=== PATIENT | male | born 1970 | race Caucasian/White ===

== ENCOUNTER 2016-12-09 19:51 | Emergency (ER) | payer OTHER ==
[2016-12-09 19:52] VITALS: BMI 29.5
[2016-12-09 21:01] VITALS: BP 116/66; PULSE 94; RESP 20; TEMP 99.1; O2SAT 94
[2016-12-09] MEDS ORDERED: Tobramycin 0.3% OPH OINT OD STA (21:39)
[2016-12-09] MEDS ORDERED: Tobramycin 0.3% OPH OINT ONE (21:48)
--- NOTE | 2016-12-09 22:02 | C.PDOC ---
History Of Present Illness 46 y/o male presents to ED with complaints of eyes pain and redness with associated itchiness for 5 days. Patient has been using Visine with no relief. Patient denies injury, fever, rash or any other complaints a this time. Time Seen by Provider: 12/09/16 21:16 Chief Complaint (Nursing): ENT Problem History Per: Patient History/Exam Limitations: no limitations Onset/Duration Of Symptoms: Days Current Symptoms Are (Timing): Still Present Past Medical History Reviewed: Historical Data, Nursing Documentation, Vital Signs Vital Signs: Last Vital Signs Temp 99.1 F 12/09/16 20:58 Pulse 94 H 12/09/16 20:58 Resp 20 12/09/16 20:58 BP 116/66 12/09/16 20:58 Pulse Ox 94 L 12/09/16 22:10 - Medical History PMH: Anxiety, Asthma, Back Problems, HTN Surgical History: No Surg Hx Family History: States: No Known Family Hx - Social History Hx Tobacco Use: Yes Hx Alcohol Use: No Hx Substance Use: No - Immunization History Hx Tetanus Toxoid Vaccination: No Hx Influenza Vaccination: Yes Hx Pneumococcal Vaccination: No Review Of Systems Except As Marked, All Systems Reviewed And Found Negative. Constitutional: Negative for: Fever, Chills Eyes: Positive for: Conjunctivae Inflammation, Redness ENT: Negative for: Nose Congestion Respiratory: Negative for: Shortness of Breath Gastrointestinal: Negative for: Nausea, Vomiting Skin: Negative for: Rash Neurological: Negative for: Weakness, Numbness Physical Exam - Physical Exam Appears: Non-toxic, No Acute Distress Skin: Normal Color, Warm, Dry, No Rash Head: Atraumatic, Normacephalic Eye(s): bilateral: PERRL, EOMI, Other (conjunctival injection L> R) Nose: Normal Oral Mucosa: Moist Throat: Normal, No Erythema, No Exudate Neck: Normal ROM, Supple Chest: Symmetrical Cardiovascular: Rhythm Regular, No Murmur Respiratory: Normal Breath Sounds, No Rales, No Rhonchi, No Wheezing Neurological/Psych: Oriented x3, Normal Speech, Normal Motor, Normal Sensation ED Course And Treatment O2 Sat by Pulse Oximetry: 94 (RA) Pulse Ox Interpretation: Normal Progress Note: Instructed to follow up with eye doctor in 1-2 days or return to ER if symtpoms persist or worsen. Disposition - Disposition Referrals: Loco Hensley MD [Staff Provider] - Disposition: HOME/ ROUTINE Disposition Time: 22:07 Condition: STABLE Additional Instructions: Follow up with eye doctor in 1-3 days without fail for further evaluation. Take medications as prescribed. Return to the emergency department at any time if symptoms persist or worsen. Prescriptions: Tobramycin 0.3% [Tobramycin 5 Ml] 1 drop OP Q4 #1 bottle Instructions: Conjunctivitis (ED) Forms: [id number] ([place]) - Clinical Impression Clinical Impression: Conjunctivitis - PA / OTC CLERK / Resident Statement MD/DO has reviewed & agrees with the documentation as recorded. - Scribe Statement The provider has reviewed the documentation as recorded by the Scribe Raiza Thomas All medical record entries made by the Megganibchas were at my direction and personally dictated by me. I have reviewed the chart and agree that the record accurately reflects my personal performance of the history, physical exam, medical decision making, and the department course for this patient. I have also personally directed, reviewed, and agree with the discharge instructions and disposition.
== END 2016-12-09 22:00 | disposition home or self-care (01) ==
LOC: C.ER 19:51
DX: H10.9 Unspecified conjunctivitis (principal)